=== PATIENT | female | born 1980 ===

== ENCOUNTER 2018-02-28 09:08 | Emergency (ER) | payer MEDICAID ==
[2018-02-28 09:13] VITALS: BP 145/85; PULSE 72; RESP 17; TEMP 98.4; O2SAT 100
--- NOTE | 2018-02-28 09:54 | ED PDOC ---
HPI: Skin/Bite Injury Time Seen by Provider: 02/28/18 09:38 Chief Complaint (Nursing): Abnormal Skin Integrity Chief Complaint (Provider): rash History Per: Geology Instructor ([id number]) History/Exam Limitations: no limitations Onset/Duration Of Symptoms: Days (7) Current Symptoms Are (Timing): Still Present Quality Of Symptoms: Itching Severity: Moderate Additional Complaint(s): 38yo female c/o rash x about 1 week. Denies SOB, throat or mouth swelling. Rash to chest, trunk and arms, isolated. Family also has itching but no rash. States she changed her mattress, concerned as did see insects she believes associated with a garden she planted. Had similar symptoms about a year ago but resolved spontaneously. Denies fever, rash on palms or soles, recent travel or weight loss. Past Medical History Reviewed: Historical Data, Vital Signs Vital Signs: Last Vital Signs Temp 98.4 F 02/28/18 09:12 Pulse 72 02/28/18 09:12 Resp 17 02/28/18 09:12 BP 145/85 02/28/18 09:12 Pulse Ox 100 02/28/18 09:12 - Medical History PMH: No Chronic Diseases - Surgical History Surgical History: No Surg Hx - Family History Family History: States: Unknown Family Hx - Living Arrangements Living Arrangements: With Family - Social History Current smoker - smoking cessation education provided: No - Home Medications Home Medications: Ambulatory Orders Medication Instructions Recorded Permethrin 5% [Permethrin 5% Cream] 60 gm EXT ONCE #1 tube 02/28/18 - Allergies Allergies/Adverse Reactions: Allergies Allergy/AdvReac Type Severity Reaction Status Date / Time No Known Allergies Allergy Verified 02/28/18 09:20 Review of Systems ROS Statement: Except As Marked, All Systems Reviewed And Found Negative Constitutional: Negative for: Fever Cardiovascular: Negative for: Chest Pain Respiratory: Negative for: Shortness of Breath Gastrointestinal: Negative for: Abdominal Pain Genitourinary Female: Negative for: Dysuria Musculoskeletal: Negative for: Neck Pain, Back Pain Skin: Positive for: Rash. Negative for: Lesions, Jaundice, Bruising Neurological: Negative for: Weakness, Numbness, Headache Psych: Negative for: Depression Physical Exam - Reviewed Nursing Documentation Reviewed: Yes Vital Signs Reviewed: Yes - Physical Exam Appears: Positive for: Well, Non-toxic, No Acute Distress Head Exam: Positive for: ATRAUMATIC, NORMAL INSPECTION, NORMOCEPHALIC Skin: Positive for: Warm, Rash (isolated macular lesions to R chest wall in linear line, punctuate to arms and trunk, back and legs no rash. scalp no rash. palms and soles no rash.) Eye Exam: Positive for: EOMI, Normal appearance, PERRL ENT: Positive for: Normal ENT Inspection. Negative for: Tonsillar Exudate, Tonsillar Swelling Neck: Positive for: Normal, Painless ROM Cardiovascular/Chest: Positive for: Regular Rate, Rhythm Respiratory: Positive for: CNT, Normal Breath Sounds Gastrointestinal/Abdominal: Positive for: Normal Exam, Soft Back: Positive for: Normal Inspection Extremity: Positive for: Normal ROM Neurologic/Psych: Positive for: Alert, Oriented. Negative for: Motor/Sensory Deficits - ECG O2 Sat by Pulse Oximetry: 100 Medical Decision Making Medical Decision Making: states family also itching, trial permethrin cream and followup PMD for derm referral if persists. Benadryl for itch. Given vitals stable and no oropharyngeal or resp involvement stable for outpatient workup. Disposition - Clinical Impression Clinical Impression: Rash - Patient ED Disposition Is Patient to be Admitted: No Counseled Patient/Family Regarding: Studies Performed, Diagnosis - Disposition Disposition: Routine/Home Disposition Time: 09:57 Condition: STABLE Additional Instructions: See PMD in 4-5 days for further testing if symptoms persist. Trial of permethrin cream as discussed. Return to ER for any worse or new symptoms.\ Recommend benadryl 25mg every 6-8hrs as needed for itch. May cause drowsiness. Do not drive or operate machinery while taking. Prescriptions: Permethrin 5% [Permethrin 5% Cream] 60 gm EXT ONCE #1 tube Instructions: Skin Rash (DC) Forms: [employer] ([employer]) Print Language: [email or web address]
== END 2018-02-28 10:20 | disposition home or self-care (01) ==
LOC: H.ER 09:08
DX: R21 Rash and other nonspecific skin eruption (principal)